=== PATIENT | male | born 1965 | race Caucasian/White ===

== ENCOUNTER 2024-07-01 16:29 | Observation (INO) | payer BC ==
[~2024-07-01 16:29] MED LIST: Iopamidol-370 76% 500 ML MDV (1 ML CHARGE) ONE
[2024-07-01 18:30] LABS: #Basophils 0.07 10x3/uL (0.0-0.2); %Lymphocytes 37.3 % (21.0-51.0); %Monocytes 8.7 % (0.0-10.0); %Neutrophils 48.9 % (42.0-75.0); Hematocrit 37.6 % (42.0-52.0); Hemoglobin 13.4 g/dL (14.0-18.0); Mean Corpuscular HGB CONC 35.6 g/dL (32.0-36.0); Mean Corpuscular Hemoglobin 31.9 pg (27.0-31.0); Mean Corpuscular Volume 89.5 fL (78.0-98.0); Mean Platelet Volume 9.4 fL (7.4-10.4); Platelet Count 279 10x3/uL (130-400); RBC Distribution Width 12.7 % (11.5-14.5)
[2024-07-01 18:49] LABS: ALT (SGPT) 27 U/L (8-55); AST (SGOT) 18 U/L (5-34); Albumin 4.5 g/dL (3.5-5.0); Alkaline Phosphatase 58 U/L (40-110); Anion Gap 14 mmol/L (10-20); BUN (Urea Nitrogen) 16 mg/dL (8.4-25.7); Bilirubin, Total 0.7 mg/dL (0.2-1.2); Calc. Creatinine Clearance 0 mL/min (70-130); Calcium 9.7 mg/dL (7.8-10.44); Carbon Dioxide 23 mmol/L (22-29); Chloride 106 mmol/L (98-107); Estimated GFR 78; Globulin 3.7 g/dL (2.4-3.5); Glucose 138 mg/dL (70-105); Protein, Total 8.2 g/dL (6.0-8.3); Sodium 139 mmol/L (136-145)
[2024-07-01 18:53] LABS: Troponin I Less than 0.010 ng/mL (< 0.028)
[2024-07-01] MEDS ORDERED: Ketorolac Tromethamine 30 MG (1 mL) VIAL ONE (19:01)
[2024-07-01] MEDS ORDERED: diphenhydrAMINE 50 MG/ML VIAL ONE (19:01)
[2024-07-01] MEDS ORDERED: Prochlorperazine 10 MG/2 ML VIAL ONE (19:02)
[2024-07-01] MEDS ORDERED: Aspirin Chewable 81 MG TAB ONE (21:29)
[2024-07-01] MEDS ORDERED: Insulin Lispro 100 UNIT/ML 10 ML VIAL SC PRN ×2 (22:09)
[2024-07-01] MEDS ORDERED: Senokot S 8.6-50 MG TAB PO PRN (22:09)
[2024-07-01] MEDS ORDERED: Calcium Carbonate 500 MG ChewTAB PO PRN (22:09)
[2024-07-01] MEDS ORDERED: Acetaminophen 650 MG Suppository PR PRN (22:09)
[2024-07-01] MEDS ORDERED: Glucagon 1 MG/ML KIT IM PRN (22:09)
[2024-07-01] MEDS ORDERED: Dextrose 5% in Water 1,000 ML IV PRN (22:09)
[2024-07-01] MEDS ORDERED: Ondansetron ODT 4 MG TAB PO PRN (22:09)
[2024-07-01] MEDS ORDERED: hydrALAZINE 20 MG/ML VIAL SLOW IVP PRN (22:09)
[2024-07-01] MEDS ORDERED: Ondansetron PF 4 MG/2 ML Vial IVP PRN (22:09)
[2024-07-01] MEDS ORDERED: Dextrose 50% Abboject 50 ML SYRINGE SLOW IVP PRN (22:09)
[2024-07-02 01:08] VITALS: BMI 31.5
[2024-07-02] MEDS: Aspirin 81 mg Enteric Coated Tablet PO SCH (09:14)
[2024-07-02] MEDS: Enoxaparin 40 MG (0.4 mL) SYRINGE SC SCH (09:14)
[2024-07-02] MEDS: FLU (Fluarix Triv) TS24-25(6MOS UP)/PF 45 MCG/0.5 ML Syringe IM ONE (09:14)
[2024-07-02] MEDS: Acetaminophen 325 MG TAB PO PRN (09:16)
[2024-07-02 09:19] LABS: #Basophils 0.04 10x3/uL (0.0-0.2); %Basophils 0.7 % (0.0-1.0); %Eosinophils 3.3 % (0.0-10.0); %Lymphocytes 29.5 % (21.0-51.0); %Monocytes 9.7 % (0.0-10.0); %Neutrophils 56.5 % (42.0-75.0); Hematocrit 33.9 % (42.0-52.0); Hemoglobin 12.1 g/dL (14.0-18.0); Mean Corpuscular HGB CONC 35.7 g/dL (32.0-36.0); Mean Corpuscular Hemoglobin 32.5 pg (27.0-31.0); Mean Corpuscular Volume 91.1 fL (78.0-98.0); Mean Platelet Volume 9.3 fL (7.4-10.4); Platelet Count 243 10x3/uL (130-400); RBC Distribution Width 12.6 % (11.5-14.5); Red Blood Cell (RBC) Count 3.72 mill/uL (4.70-6.10)
[2024-07-02 09:38] LABS: Anion Gap 14 mmol/L (10-20); BUN (Urea Nitrogen) 21 mg/dL (8.4-25.7); Calc. Creatinine Clearance 131 mL/min (70-130); Calcium 8.6 mg/dL (7.8-10.44); Carbon Dioxide 21 mmol/L (22-29); Cardiac Risk 3.2 (Less than 4.5); Chloride 108 mmol/L (98-107); Cholesterol 140 mg/dl (< 200 Desired); Estimated GFR 95; Glucose 197 mg/dL (70-105); HDL Cholesterol 44 mg/dL (>60 Neg Risk); LDL Cholesterol, Calculated 63 mg/dL; Potassium 4.1 mmol/L (3.5-5.1); Sodium 139 mmol/L (136-145); Triglycerides 167 mg/dL (Less than 150)
[2024-07-02 10:39] LABS: Platelet Adequacy Comment Platelets Normal; Polychromasia MODERATE = 3-4 cells HPF (0-2)
[2024-07-02 11:52] VITALS: TEMP 98.7
[2024-07-02] MEDS ORDERED: Naproxen 500 MG TAB PO PRN (14:28)
[2024-07-02 15:59] VITALS: BP 142/82
[2024-07-02] MEDS ORDERED: Atorvastatin Calcium 40 MG TAB PO SCH (21:00)
== END 2024-07-02 17:11 | disposition home or self-care (01) ==
LOC: ERS 16:29 → OBS 21:21
PROVIDERS: ADMIT Internal Medicine; ATTEND Internal Medicine
DX: H53.2 Diplopia (principal); M54.81 Occipital neuralgia; G44.52 New daily persistent headache (NDPH); G43.909 Migraine, unspecified, not intractable, without status migrainosus; I10 Essential (primary) hypertension; E11.9 Type 2 diabetes mellitus without complications; E78.5 Hyperlipidemia, unspecified; C90.00 Multiple myeloma not having achieved remission; Z90.49 Acquired absence of other specified parts of digestive tract; Z79.82 Long term (current) use of aspirin; Z79.4 Long term (current) use of insulin; Z79.1 Long term (current) use of non-steroidal anti-inflammatories (NSAID); Z79.84 Long term (current) use of oral hypoglycemic drugs; Z79.899 Other long term (current) drug therapy
CPT/HCPCS: 36415; 36416; 70496; 80048; 80053; 80061; 84443; 84484; 85025; 93005; 96372; 96374; 96375; G0378; J0780; J1200; J1650; J1885; Q9967